=== PATIENT | female | born 1960 | race Hispanic/Latino ===

== ENCOUNTER 2017-11-03 13:57 | Outpatient (CLI) | payer BC ==
[2017-11-03 14:45] LABS: Blood Urea Nitrogen 19 mg/dL (7-17)
--- NOTE | 2017-11-06 19:06 | Magnetic Resonance Report ---
MR scan of the cranium was performed with and without contrast. Pulse sequences included: 1. T1 weighted sagittal and axial images without contrast and T1 axial and coronal images with contrast 2. T2 weighted axial and coronal images 3. FLAIR axial images 4. Diffusion-weighted axial images 5. Apparent diffusion coefficient images 6. Gradient echo T2 images Views of the posterior fossa showed a normal craniocervical junction. Cerebellar pontine angles were normal with normal seventh-eighth nerve complexes. Brainstem and cerebellum were normal. The ventricular system showed no dilatation or distortion. Images of the hemispheres showed occasional areas of increased signal in the [place]ike radiata. Sinuses, pituitary, flow voids in the [place], orbits, and basal ganglia were normal. There are no abnormal areas of enhancement with contrast. Impression: Abnormal MR scan of the cranium with and without contrast occasional areas of increased signal in the [place]ike radiata consistent with white matter araiosis and unlikely to be of clinical significance
== END 2017-11-03 13:58 | disposition home or self-care (01) ==
LOC: MRI 13:57
PROVIDERS: ATTEND Specialist
DX: H46.9 Unspecified optic neuritis (principal); R93.0 Abnormal findings on diagnostic imaging of skull and head, not elsewhere classified; R51 Headache
CPT/HCPCS: 36415; 70553; 82565; 84520; A9577

== ENCOUNTER 2017-11-10 15:54 | Outpatient (CLI) | payer BC ==
--- NOTE | 2017-11-12 08:01 | Magnetic Resonance Report ---
MR CERVICAL SPINE WITHOUT CONTRAST HISTORY: Optic neuritis, multiple sclerosis. TECHNIQUE: Axial T1 and T2. Sagittal T1, T2 and STIR. COMPARISON: None. FINDINGS: Limited exam with patient motion. The cervical spinal cord appears normal size and signal intensity throughout. No abnormal intramedullary signal is detected. Normal height and alignment of the cervical vertebral bodies. Normal bone marrow signal. No evidence for fracture, malalignment or bone lesion. No central canal stenosis is appreciated. There is mild diffuse disc desiccation. Mild diffuse facet arthropathy without hypertrophic changes. C2-C3: No significant abnormality. C3-4: No significant abnormality. C4-5: No significant abnormality. C5-6: A small right paracentral disc protrusion is suspected which abuts but does not displace the spinal cord. Mild facet arthropathy. No significant neural foraminal narrowing is detected. C6-7: Moderate posterior and bilateral uncovertebral spurring is identified. There is moderate bilateral neural foraminal narrowing estimated at 50-75%. C7-T1: No abnormality. IMPRESSION: Limited exam secondary to patient motion. Mild to moderate multilevel cervical spondylosis. C6-7 appears to be the most affected level. Small right paracentral disc protrusion at C5-6. No abnormal cord signal is detected.
== END 2017-11-10 15:55 | disposition home or self-care (01) ==
LOC: MRI 15:54
PROVIDERS: ATTEND Specialist
DX: M48.02 Spinal stenosis, cervical region (principal); M47.892 Other spondylosis, cervical region; M12.88 Other specific arthropathies, not elsewhere classified, other specified site; M50.222 Other cervical disc displacement at C5-C6 level; H46.9 Unspecified optic neuritis
CPT/HCPCS: 72141

== ENCOUNTER 2017-12-05 09:08 | Day surgery (SDC) | payer BC ==
--- NOTE | 2017-12-05 09:44 | Anesthesia Day of Surgery ---
Anesthesia Day of Surgery - Day of Surgery Patient Examined: Yes Patient H&P Reviewed: Yes Patient is NPO: Yes
--- NOTE | 2017-12-05 09:44 | Anesthesia Consultation ---
Anesthesia Consult and Med Hx Date of service: 12/05/17 - Airway Anesthetic Teeth Evaluation: Poor (MISSING), Partials ROM Head & Neck: Adequate Mental/Hyoid Distance: Adequate Mallampati Class: Class III Intubation Access Assessment: Possibly Difficult - Pulmonary Exam CTA: Yes - Cardiac Exam Cardiac Exam: RRR - Pre-Operative Health Status ASA Pre-Surgery Classification: ASA3 Proposed Anesthetic Plan: MAC - Pulmonary Hx Sleep Apnea: Yes - Cardiovascular System Hx Hypertension: Yes - Central Nervous System Hx Neuromuscular Disorder: Yes (possible MS) - Endocrine Hx Hypothyroidism: Yes - Other Systems Hx Obesity: Yes - Additional Comments Anesthesia Medical History Comments: Informed consent obtained
[2017-12-05] MEDS ORDERED: DIPRIVAN 10 MG/ML IV ONE ×5 (10:01→11:29)
[2017-12-05] MEDS ORDERED: VERSED ONE (10:01)
[2017-12-05] MEDS ORDERED: XYLOCAINE MPF 2% ONE (10:19)
[2017-12-05] MEDS ORDERED: NACL 0.9% 500 ML 500 ML ONE (10:55)
[2017-12-05] MEDS ORDERED: NACL 0.9% 500 ML 500 ML IV SCH (13:00)
[2017-12-05 13:31] VITALS: BP 152/82
--- NOTE | 2017-12-05 14:23 | Post Anesthesia Evaluation ---
- Post Anesthesia Evaluation Patient Participated: Yes Airway Patent: Yes Stable Respiratory Function: Yes Nausea/Vomiting: No Temp > 96.8F: Yes Pain Manageable: Yes Adequeate Hydration: Yes Anesthesia Complications: No
--- NOTE | 2017-12-07 10:08 | Magnetic Resonance Report ---
MR THORACIC SPINE WITHOUT CONTRAST HISTORY: Numbness. Multiple sclerosis. TECHNIQUE: Axial T1 and T2. Sagittal T1, T2 and STIR. Anesthesia was present for sedation. COMPARISON: No previous examinations of the thoracic spine. Correlation is made with MR brain and cervical spine performed earlier at this facility. FINDINGS: Normal height and alignment of the thoracic vertebral bodies. No evidence for fracture, suspicious bone lesion or bone marrow edema. 1 cm vertebral bone hemangioma within the T10 vertebral body is noted. The thoracic spinal cord appears normal size and signal intensity throughout. The conus terminates near the L1-2 level. No abnormal intramedullary signal or mass is appreciated. There is mild diffuse disc desiccation. Mild diffuse facet arthropathy. No hypertrophic change is appreciated. The paraspinal soft tissues are within normal limits. T1-2: No abnormality. T2-3: No abnormality. T3-4: No abnormality. T4-5: No abnormality. T5-6: No abnormality. T6-7: No abnormality. T7-8: No abnormality. T8-9: No abnormality. T9-10: There is moderate disc desiccation and mild posterior bulging at this level. A small right paracentral disc protrusion is identified without mass effect. No neural foraminal narrowing. T10-11: No significant abnormality with the disc. There is mild to moderate facet arthropathy. No neuroforaminal narrowing. T11-12: A tiny midline central disc protrusion is identified without mass effect. Moderate facet arthropathy. No significant neural foraminal narrowing. T12-L1: A small to medium left paracentral disc protrusion is identified which mildly displaces the anterior thecal sac. No central canal or neuroforaminal narrowing. IMPRESSION: There is mild respiratory motion artifact on this exam given its was done under anesthesia. No abnormal thoracic spinal cord signal is demonstrated. Mild thoracic spondylosis as outlined above. The lower thoracic spine is most affected. Relatively small disc protrusions at T9-10, T11-12 and T12-L1 as outlined above.
== END 2017-12-05 13:45 | disposition home or self-care (01) ==
LOC: CATHLABREC 09:08
PROVIDERS: ATTEND Specialist
DX: M47.814 Spondylosis without myelopathy or radiculopathy, thoracic region (principal); H46.9 Unspecified optic neuritis; G35 Multiple sclerosis; I10 Essential (primary) hypertension; G47.30 Sleep apnea, unspecified; E66.9 Obesity, unspecified; Z68.42 Body mass index [BMI] 45.0-49.9, adult
CPT/HCPCS: 72146; J2250; J2704; J7040

== ENCOUNTER 2017-12-26 08:06 | Day surgery (SDC) | payer BC ==
[2017-12-26 10:16] LABS: Basophils # (Auto) 0.1 K/mm3 (0.0-0.1); Basophils % (Auto) 1.1 % (0.0-1.8); Eosinophils # (Auto) 0.3 K/mm3 (0.0-0.4); Eosinophils % (Auto) 3.7 % (0.0-4.3); Hematocrit 39.5 % (30.3-42.9); Hemoglobin 13.2 gm/dl (10.1-14.3); Lymphocytes # (Auto) 2.6 K/mm3 (1.2-5.4); Lymphocytes % (Auto) 34.2 % (13.4-35.0); Mean Corpuscular HGB Conc 34 % (30-34); Mean Corpuscular Hemoglobin 31 pg (28-32); Mean Corpuscular Volume 92 fl (79-97); Monocytes # (Auto) 0.5 K/mm3 (0.0-0.8); Monocytes % (Auto) 7.3 % (0.0-7.3); Platelet Count 203 K/mm3 (140-440); Red Blood Count 4.29 M/mm3 (3.65-5.03)
[2017-12-26 10:26] LABS: INR 0.93 (0.87-1.13)
[2017-12-26 10:27] LABS: Partial Thromboplastin Time 29.5 Sec. (24.2-36.6)
[2017-12-26 12:57] LABS: Glucose,CSF 73 mg/dL
[2017-12-26 13:07] LABS: Appearance,CSF Clear; White Blood Cell,CSF 0 /mm3 (1-10)
[2017-12-26 13:08] LABS: Red Blood Cell,CSF 1 /mm3 (0-0)
[2017-12-26 13:21] VITALS: BP 154/82
--- NOTE | 2017-12-26 14:00 | Fluoroscopy Report ---
FLUOROSCOPY LUMBAR PUNCTURE HISTORY: Neuromyelitis optica DESCRIPTION OF PROCEDURE: Informed consent was obtained. Sterile technique was utilized. 1% lidocaine for skin anesthesia. Using fluoroscopy guidance, lumbar puncture was performed at the L2-3 level. One fluoroscopic image was captured. There was spontaneous return of clear CSF. 4 tubes of CSF were collected for laboratory analysis. No complications. IMPRESSION: Successful fluoroscopy-guided lumbar puncture.
[2017-12-26 14:01] LABS: Total Cells Counted 5 /mm3
== END 2017-12-26 13:20 | disposition home or self-care (01) ==
LOC: CATHLABREC 08:06
PROVIDERS: ATTEND Specialist
DX: G36.0 Neuromyelitis optica [Devic] (principal); Z79.899 Other long term (current) drug therapy; Z79.01 Long term (current) use of anticoagulants
CPT/HCPCS: 36415; 62270; 77003; 82947; 83873; 83916; 84160; 85025; 85610; 85730; 87116; 89051

== ENCOUNTER 2017-12-30 13:17 | Emergency (ER) | payer BC ==
[2017-12-30] MEDS ORDERED: TORADOL IV ONE (14:50)
[2017-12-30] MEDS ORDERED: NACL 0.9% 1000 ML 1,000 ML IV ONE (14:50)
[2017-12-30] MEDS ORDERED: DILAUDID IV ONE (14:50)
[2017-12-30 15:41] LABS: Basophils # (Auto) 0.1 K/mm3 (0.0-0.1); Basophils % (Auto) 1.4 % (0.0-1.8); Eosinophils # (Auto) 0.2 K/mm3 (0.0-0.4); Eosinophils % (Auto) 2.6 % (0.0-4.3); Hematocrit 42.3 % (30.3-42.9); Hemoglobin 13.8 gm/dl (10.1-14.3); Lymphocytes # (Auto) 2.8 K/mm3 (1.2-5.4); Lymphocytes % (Auto) 30.6 % (13.4-35.0); Mean Corpuscular HGB Conc 33 % (30-34); Mean Corpuscular Hemoglobin 31 pg (28-32); Mean Corpuscular Volume 94 fl (79-97); Monocytes # (Auto) 0.7 K/mm3 (0.0-0.8); Monocytes % (Auto) 7.3 % (0.0-7.3); Platelet Count 221 K/mm3 (140-440); Red Blood Count 4.51 M/mm3 (3.65-5.03); Red Cell Distribution Width 13.4 % (13.2-15.2)
--- NOTE | 2017-12-30 15:47 | Emergency Department Report ---
ED Headache HPI - General Chief Complaint: Headache Stated Complaint: HEADACHE Time Seen by Provider: 12/30/17 14:14 - History of Present Illness Initial Comments: This is a 57-year-old female nontoxic, well nourished in appearance, no acute signs of distress presents to the ED with c/o of headache. Patient stated she had a spinal tap done by Dr. Evans, radiologist, on Friday and then developed headache. Patient stated that her neurologist Ruth Gonzalez instructed patient to come to the ED for a blood patch. Patient denies thunderclap headache. Patient describes headache as a gradual onset that comes and goes diffusely with level of 8/10. Denies any fever, chills, nausea, vomiting, abdominal pain, chest pain, short of breath, numbness, tingling, back pain. Patient stated allergies to PCN and Erythromycin. PMH includes arthritis, headache, and HTN. Quality: moderate Head Injury Location: other (diffuse) Recent Head Trauma: no recent headache/trauma Associated Symptoms: denies symptoms. denies: confusion, fatigue, facial pain, fever/chills, flushing, loss of consciousness, nausea/vomiting, nasal congestion , nasal drainage, numbness in legs/feet, rash, seizures, sinus infection, stiff neck, vision changes, weakness Allergies/Adverse Reactions: Allergies erythromycin base Allergy (Mild, Verified 12/26/17 09:27) Rash Penicillins Allergy (Mild, Verified 12/26/17 09:27) Rash Home Medications: Ambulatory Orders Citalopram Hydrobromide [Celexa] 60 mg PO BID 12/05/17 Gabapentin [Neurontin] 600 mg PO BID 12/05/17 Levothyroxine Sodium 250 mcg PO DAILY 12/05/17 [place] Carbonate 600 mg PO BID 12/05/17 Memantine [Namenda] 10 mg PO BID 12/05/17 amLODIPine [Norvasc] 10 mg PO DAILY 12/05/17 clonazePAM [Klonopin] 1 mg PO PRN PRN 12/05/17 Acetaminophen/Codeine [Tylenol /Codeine # 3 tab] 1 tab PO Q6H PRN #12 tab ED Review of Systems ROS: Stated complaint: HEADACHE Other details as noted in HPI Constitutional: denies: chills, fever Eyes: denies: eye pain, eye discharge, vision change ENT: denies: ear pain, throat pain Respiratory: denies: cough, shortness of breath, wheezing Cardiovascular: denies: chest pain, palpitations Endocrine: no symptoms reported Gastrointestinal: denies: abdominal pain, nausea, diarrhea Genitourinary: denies: urgency, dysuria, discharge Musculoskeletal: denies: back pain, joint swelling, arthralgia Skin: denies: rash, lesions Neurological: headache. denies: weakness, paresthesias Psychiatric: denies: anxiety, depression Hematological/Lymphatic: denies: easy bleeding, easy bruising ED Past Medical Hx - Past Medical History Hx Hypertension: Yes Hx Heart Attack/AMI: No Hx Arthritis: Yes Hx Headaches / Migraines: Yes Hx Psychiatric Treatment: (bipolar) Hx HIV: No Additional medical history: severe muscle weakness, optical neritis - Surgical History Hx Cholecystectomy: Yes Hx Appendectomy: Yes Additional Surgical History: ovarian cyst, LP 12/2017 - Social History Smoking Status: Never Smoker Substance Use Type: None - Medications Home Medications: Home Medications Medication Instructions Recorded Confirmed Last Taken Type Citalopram Hydrobromide [Celexa] 60 mg PO BID 12/05/17 12/05/17 12/04/17 History Gabapentin [Neurontin] 600 mg PO BID 12/05/17 12/05/17 12/04/17 History Levothyroxine Sodium 250 mcg PO DAILY 12/05/17 12/05/17 12/04/17 History [place] Carbonate 600 mg PO BID 12/05/17 12/05/17 12/04/17 History Memantine [Namenda] 10 mg PO BID 12/05/17 12/05/17 12/04/17 History amLODIPine [Norvasc] 10 mg PO DAILY 12/05/17 12/05/17 12/04/17 History clonazePAM [Klonopin] 1 mg PO PRN PRN 12/05/17 12/05/17 12/04/17 History Acetaminophen/Codeine [Tylenol 1 tab PO Q6H PRN #12 tab 12/30/17 Unknown Rx /Codeine # 3 tab] ED Physical Exam - General Limitations: Physical Limitation General appearance: alert, in no apparent distress - Head Head exam: Present: atraumatic, normocephalic - Eye Eye exam: Present: normal appearance, PERRL, EOMI - ENT ENT exam: Present: normal exam, mucous membranes moist - Neck Neck exam: Present: normal inspection, full ROM. Absent: tenderness, meningismus, lymphadenopathy - Respiratory Respiratory exam: Present: normal lung sounds bilaterally. Absent: respiratory distress, wheezes, rales, rhonchi, stridor, chest wall tenderness, accessory muscle use, decreased breath sounds, prolonged expiratory - Cardiovascular Cardiovascular Exam: Present: regular rate, normal rhythm, normal heart sounds. Absent: bradycardia, tachycardia, irregular rhythm, systolic murmur, diastolic murmur, rubs, gallop - GI/Abdominal GI/Abdominal exam: Present: soft, normal bowel sounds. Absent: distended, tenderness, guarding, rebound, rigid, diminished bowel sounds - Rectal Rectal exam: Present: deferred - Extremities Exam Extremities exam: Present: normal inspection, full ROM, normal capillary refill - Back Exam Back exam: Present: normal inspection, full ROM. Absent: tenderness, CVA tenderness (R), CVA tenderness (L), muscle spasm, paraspinal tenderness, vertebral tenderness, rash noted - Neurological Exam Neurological exam: Present: alert, oriented X3, CN II-XII intact, normal gait - Expanded Neurological Exam Expanded Patient oriented to: Present: person, place, time Cranial nerves: EOM's Intact: Normal, Gag Reflex: Normal, Facial Sensation: Normal Cerebellar function: Finger to Nose: Normal Upper motor neuron: Pronator Drift: Normal, Sensory Extinction: Normal Sensory exam: Upper Extremity Light Touch: Normal, Upper Extremity Pin Prick: Normal, Upper Extremity Temperature: Normal, UE 2 Point Discrimination: Normal, Lower Extremity Light Touch: Normal, Lower Extremity Pin Prick: Normal, Lower Extremity Temperature: Normal, LE 2 Point Discrimination: Normal Motor strength exam: RUE: 5, LUE: 5, RLE: 5, LLE: 5 Best Eye Response ([place]): (4) open spontaneously Best Motor Response ([place]): (6) obeys commands Best Verbal Response ([place]): (5) oriented [place] Total: 15 - Psychiatric Psychiatric exam: Present: normal affect, normal mood - Skin Skin exam: Present: warm, dry, intact, normal color. Absent: rash ED Course Vital Signs 12/30/17 13:21 Temperature 98.1 F Pulse Rate 79 Respiratory 18 Rate Blood Pressure 161/71 O2 Sat by Pulse 97 Oximetry - Reevaluation(s) Reevaluation #1: 12/30/17 15:48 Patient is speaking in full sentences with no signs of distress noted. Reevaluation #2: 12/30/17 18:29 Patient is stable and neurologically intact. Reevaluation #3: 12/30/17 18:31 Patient signed out to Lori Briggs to reevaulate patient at 8 PM and if stable to discharge home. - Consultations Consultation #1: 12/30/17 15:48 Patient has been consulted with Dr. Mary about patient history, physical exam , and labs and examined and screened patient and agrees to ED plan of care. Consultation #2: 12/30/17 15:48 Patient has been consulted with Ruth Gonzalez about patient history, physical exam, and stated that patient needs a blood patch and should be done by anesthesia. Consultation #3: 12/30/17 15:49 Dr. Ott from anesthesia team was consulted about patient and stated he will come and perform the blood patch and stated no need for admission. ED Medical Decision Making - Lab Data Result diagrams: 12/30/17 15:21 12/30/17 15:21 - Medical Decision Making This is a 57-year-old female that presents with headache. Patient is stable and was examined by me and Dr. Mary. Dr. Mae was consulted. Anesthesia team performed the blood patch successfully with no adverse side effects. As per anesthesia, patient to lay flat for 3 hours and then to be discharged in 3 hours with neuro checks by RN. Patient stated headache has subsided. Patient is discharged with Tyl #3. Patient is neurologically stable. Patient was instructed to Follow-up with a primary care/neurologist doctor in 3-5 days or if symptoms worsen and continue return to emergency room as soon as possible. At time of discharge, the patient does not seem toxic or ill in appearance. No acute signs of distress noted. Patient agrees to discharge treatment plan of care. No further questions noted by the patient. Patient signed out to Lori Briggs to reevaluate patient at 8 PM and if stable to discharge home. Critical care attestation.: If time is entered above; I have spent that time in minutes in the direct care of this critically ill patient, excluding procedure time. ED Disposition Clinical Impression: Headache Qualifiers: Headache type: unspecified Headache chronicity pattern: acute headache Intractability: not intractable Qualified Code(s): R51 - Headache Disposition: DC-01 TO HOME OR SELFCARE Is pt being admited?: No Does the pt Need Aspirin: No Condition: Stable Instructions: Acetaminophen/Codeine (By mouth) Additional Instructions: Follow-up with a primary care/neurologist doctor in 3-5 days or if symptoms worsen and continue return to emergency room as soon as possible. Prescriptions: Acetaminophen/Codeine [Tylenol /Codeine # 3 tab] 1 tab PO Q6H PRN #12 tab PRN Reason: Pain Referrals: CELESTINA DARDEN MD [Primary Care Provider] - 3-5 Days RUTH MAE MD [Staff Physician] - 3-5 Days [facility] [Outside] - 3-5 Days
[2017-12-30 15:54] LABS: BUN/Creatinine Ratio 15; Blood Urea Nitrogen 12 mg/dL (7-17); Calcium 10.4 mg/dL (8.4-10.2); Hemolysis Index 28
--- NOTE | 2017-12-30 19:23 | Emergency Department Report ---
Blank Doc - Documentation Documentation: Patient is ambulating to the bathroom without difficulties.
--- NOTE | 2017-12-30 20:15 | Emergency Department Report ---
Blank Doc - Documentation Documentation: Patient has been reevaluated by this provider. Patient denies any pain no nausea no vomiting no change in vision no headache. GENERAL APPEARANCE: Well developed, well nourished, in no acute distress. NEUROLOGIC: Alert and oriented x 3. Normal affect. Gait was normal. Sensation to touch was normal. Finger to nose intact, nystagmus intact, gag reflex intact , muscle strength intact, EOMI intact, tongue deviation exam intact. Patient is stable to be discharged home.
[2017-12-30 20:23] VITALS: BP 147/60
== END 2017-12-30 20:22 | disposition home or self-care (01) ==
LOC: ED 13:17
DX: R51 Headache (principal); I10 Essential (primary) hypertension; M19.90 Unspecified osteoarthritis, unspecified site; G43.909 Migraine, unspecified, not intractable, without status migrainosus; F31.9 Bipolar disorder, unspecified; Z90.49 Acquired absence of other specified parts of digestive tract; Z88.1 Allergy status to other antibiotic agents; Z88.0 Allergy status to penicillin
CPT/HCPCS: 36415; 80048; 85025; 96361; 96374; 96375; 99283; J1170; J1885; J7030

== ENCOUNTER 2018-01-21 14:20 | Outpatient (CLI) | payer BC ==
[2018-01-21 14:44] LABS: Hematocrit 40.2 % (30.3-42.9); Hemoglobin 13.8 gm/dl (10.1-14.3); Mean Corpuscular HGB Conc 34 % (30-34); Mean Corpuscular Hemoglobin 31 pg (28-32); Mean Corpuscular Volume 91 fl (79-97); Platelet Count 214 K/mm3 (140-440); Red Blood Count 4.43 M/mm3 (3.65-5.03)
[2018-01-21 15:01] LABS: Alanine Aminotransferase 44 units/L (7-56); Albumin 3.9 g/dL (3.9-5); BUN/Creatinine Ratio 11; Blood Urea Nitrogen 9 mg/dL (7-17); Calcium 9.9 mg/dL (8.4-10.2); Hemolysis Index 4
[2018-01-21 15:37] LABS: Free T4 (Free Thyroxine) 1.64 ng/dL (0.76-1.46)
== END 2018-01-21 14:21 | disposition home or self-care (01) ==
LOC: LAB 14:20
PROVIDERS: ATTEND Specialist
DX: H46.12 Retrobulbar neuritis, left eye (principal); I10 Essential (primary) hypertension; G47.30 Sleep apnea, unspecified; M19.90 Unspecified osteoarthritis, unspecified site; E03.9 Hypothyroidism, unspecified; R79.89 Other specified abnormal findings of blood chemistry; F32.9 Major depressive disorder, single episode, unspecified; Z90.49 Acquired absence of other specified parts of digestive tract; Z98.890 Other specified postprocedural states
CPT/HCPCS: 36415; 80053; 82607; 84439; 84443; 85027